=== PATIENT | female | born 1945 | race Hispanic/Latino ===

== ENCOUNTER 2017-03-19 10:55 | Emergency (ER) | payer MEDICARE ==
[2017-03-19 11:05] VITALS: BMI 28.3
[2017-03-19] MEDS ORDERED: Lidocaine/Epi 1% 1:100000 20 ML IJ STA (11:13)
[2017-03-19 11:14] VITALS: BP 134/72; PULSE 105; RESP 19; TEMP 97.6; O2SAT 97
[2017-03-19] MEDS ORDERED: TDAP Vaccine 0.5 mL Syr IM ONE (11:14)
--- NOTE | 2017-03-19 11:21 | ED PDOC ---
Arrival/HPI - General Chief Complaint: Trauma Time Seen by Provider: 03/19/17 11:10 Historian: Patient - History of Present Illness Narrative History of Present Illness (Text): 03/19/17 11:15 Tyra Subramanian is a 72 year old female who presents to the emergency department for evaluation of laceration to left forehead which she sustained following a mechanical fall earlier today. States she was climbing a flight of stairs when she tripped and hit her forehead. Denies loss of consciousness. Last tetanus shot unknown. Denies any fever, chills, chest pain, shortness of breath, weakness/numbness of extremities. nausea, vomiting, diarrhea, urinary symptoms, or any other complaints at this time. Time/Duration: Prior to Arrival Symptom Onset: Sudden Severity Level: Mild Activities at Onset: Significant Context: Tripped Past Medical History - Provider Review Nursing Documentation Reviewed: Yes - Past Medical History Past Medical History: No Previous - Cardiac Hx Cardiac Disorders: No Hx Hypertension: No - Pulmonary Hx Respiratory Disorders: No Hx Tuberculosis: No - Neurological HX Cerebrovascular Accident: No Hx Seizures: No - HEENT Hx HEENT Disorder: No - Renal Hx Renal Disorder: No - Endocrine/Metabolic Hx Endocrine Disorders: No - Hematological/Oncological Hx Blood Disorders: Yes Hx Cancer: No Hx Shingles: Yes - Integumentary Hx Dermatological Disorder: No - Musculoskeletal/Rheumatological Hx Musculoskeletal Disorders: No Hx Falls: No - Gastrointestinal Hx Gastrointestinal Disorders: No - Genitourinary/Gynecological Hx Genitourinary Disorders: No Hx Reproductive Disorders: No Hx Sexually Transmitted Diseases: No - Psychiatric Hx Psychophysiologic Disorder: No Hx Depression: No Hx Emotional Abuse: No Hx Physical Abuse: No Hx Substance Use: No - Surgical History Hx Hysterectomy: Yes Hx Orthopedic Surgery: Yes - Suicidal Assessment Feels Threatened In Home Enviroment: No Family/Social History - Physician Review Nursing Documentation Reviewed: Yes Family/Social History: No Known Family HX Smoking Status: Former Smoker Hx Alcohol Use: Yes Frequency of alcohol use: Socially Hx Substance Use: No Hx Substance Use Treatment: No Allergies/Home Meds Allergies/Adverse Reactions: Allergies iodine Allergy (Verified 03/19/17 11:05) RASH shellfish derived Allergy (Verified 03/19/17 11:05) RASH Home Medications: Home Meds Medication Instructions Recorded Confirmed No Known Home Med 06/25/17 06/25/17 Review of Systems - Physician Review All systems were reviewed & negative as marked: Yes - Review of Systems Constitutional: Normal. absent: Fatigue, Fevers Respiratory: Normal. absent: SOB, Cough Cardiovascular: Normal. absent: Chest Pain, Palpitations Gastrointestinal: Normal. absent: Abdominal Pain, Diarrhea, Nausea, Vomiting Neurological: Other (laceration to left forehead ). absent: Dizziness, Focal Weakness Psychiatric: Normal Physical Exam Vital Signs Reviewed: Yes Vital Signs Temp Pulse Resp BP Pulse Ox 03/19/17 10:55 97.6 F 105 H 19 134/72 97 Temperature: Afebrile Blood Pressure: Normal Pulse: Tachycardic Respiratory Rate: Normal Appearance: Positive for: Well-Appearing, Non-Toxic, Comfortable Pain Distress: None Mental Status: Positive for: Alert and Oriented X 3 - Systems Exam Head: Present: Normocephalic, Laceration (1 cm laceration on left forehead ) Pupils: Present: PERRL Conjunctiva: Present: Normal Mouth: Present: Moist Mucous Membranes Neck: Present: Normal Range of Motion. No: MIDLINE TENDERNESS, Paraspinal Tenderness Respiratory/Chest: Present: Clear to Auscultation, Good Air Exchange. No: Respiratory Distress, Accessory Muscle Use Cardiovascular: Present: Regular Rate and Rhythm, Normal S1, S2. No: Murmurs Abdomen: Present: Normal Bowel Sounds. No: Tenderness, Distention, Peritoneal Signs Upper Extremity: Present: Normal Inspection. No: Cyanosis, Edema Lower Extremity: Present: Normal Inspection. No: Edema Neurological: Present: GCS=15, CN II-XII Intact, Speech Normal, Motor Func Grossly Intact, Normal Sensory Function Skin: Present: Warm, Dry, Normal Color. No: Rashes Psychiatric: Present: Alert, Oriented x 3, Normal Insight, Normal Concentration Medical Decision Making ED Course and Treatment: 03/19/17 11:26 Impression: A 72 year old female who presents to the emergency department for evaluation of laceration to left forehead following a fall prior to arrival Plan: -- CT Head -- Lidocaine -- Boostrix -- Reassess and disposition Progress Notes: 03/19/17 12:22 PROCEDURE: LACERATION REPAIR Performed by the dr marybeth block Location: Left forehead Length: 1 cm Description: clean wound edges,no foreign bodies Distal CMS: Normal. No deficits. Neurovascularly intact. Anesthesia: Lidocaine 1% Preparation: The wound was cleaned with NS and Betadyne. The area was prepped and draped in the usual sterile fashion. Exploration: The wound was explored and no foreign bodies were found. Procedure: The wound was closed with 6-0 nylon. There was good approximation. In total, 3 were used. Post-Procedure: Good closure and hemostasis. The patient tolerated the procedure well and there were no complications. Post procedure dressing applied. 03/19/17 12:50 - RAD Interpretation Radiology Orders: 03/19/17 11:12 HEAD W/O CONTRAST [CT] Stat - Medication Orders Current Medication Orders: Discontinued Medications Lidocaine/Epinephrine (Lidocaine 1%/Epinephrine 1:[id number] 30 Ml) 5 ml IJ ONCE ONE Stop: 03/19/17 11:31 Last Admin: 03/19/17 11:45 Dose: 5 ml Tetanus/Reduced Diphtheria/Acell Pertussis (Boostrix Vaccine Inj) 0.5 ml IM .ONCE ONE Stop: 03/19/17 11:15 Last Admin: 03/19/17 11:45 Dose: 0.5 ml - Scribe Statement The provider has reviewed the documentation as recorded by the Laureano Mcghee Provider Attestation: Provider Scribe Attestation: All medical record entries made by the Scribe were at my direction and personally dictated by me. I have reviewed the chart and agree that the record accurately reflects my personal performance of the history, physical exam, medical decision making, and the department course for this patient. I have also personally directed, reviewed, and agree with the discharge instructions and disposition. Disposition/Present on Arrival - Present on Arrival Any Indicators Present on Arrival: No History of DVT/PE: No History of Uncontrolled Diabetes: No Urinary Catheter: No History of Decub. Ulcer: No History Surgical Site Infection Following: None - Disposition Have Diagnosis and Disposition been Completed?: Yes Diagnosis: Head injury Disposition: HOME/ ROUTINE Disposition Time: 11:53 Condition: STABLE Discharge Instructions (ExitCare): Care For Your Stitches (ED), Laceration (ED) , Head Injury (ED) Additional Instructions: return to er or your pmd in 7 days for removal. return immediately with any worsening symptoms or concerns Referrals: Regino Ramesh MD [Primary Care Provider] - Follow up with primary
[2017-03-19] MEDS ORDERED: Lidocaine 1%/Epinephrine 1:100000 30 ml vial IJ ONE (11:30)
--- NOTE | 2017-03-19 11:50 | CT ---
PROCEDURE: CT HEAD WITHOUT CONTRAST. HISTORY: fall COMPARISON: None available. TECHNIQUE: Axial computed tomography images were obtained through the head/brain without intravenous contrast. Radiation dose: Total exam DLP = 677 mGy-cm. This CT exam was performed using one or more of the following dose reduction techniques: Automated exposure control, adjustment of the mA and/or kV according to patient size, and/or use of iterative reconstruction technique. FINDINGS: HEMORRHAGE: No intracranial hemorrhage. BRAIN: No mass effect or edema. Mild chronic microvascular changes. Mild atrophy VENTRICLES: Unremarkable. No hydrocephalus. CALVARIUM: Unremarkable. PARANASAL SINUSES: Unremarkable as visualized. No significant inflammatory changes. MASTOID AIR CELLS: Unremarkable as visualized. No inflammatory changes. OTHER FINDINGS: None. IMPRESSION: No acute finding
== END 2017-03-19 12:26 | disposition home or self-care (01) ==
LOC: ED 10:55
DX: S01.81XA Laceration without foreign body of other part of head, initial encounter (principal); W01.198A Fall on same level from slipping, tripping and stumbling with subsequent striking against other object, initial encounter; Z23 Encounter for immunization

== ENCOUNTER 2017-03-26 11:34 | Emergency (ER) | payer MEDICARE ==
[2017-03-26 11:35] VITALS: BMI 28.3
[2017-03-26 11:54] VITALS: BP 175/81; PULSE 80; RESP 18; TEMP 99.4; O2SAT 98
--- NOTE | 2017-03-26 12:13 | ED PDOC ---
Arrival/HPI - General Chief Complaint: Suture/Staple Removal Time Seen by Provider: 03/26/17 12:04 Historian: Patient, Family - History of Present Illness Time/Duration: 1 week Associated Symptoms (Text): 03/26/17 12:12 Here for suture removal from left forehead sutured one week ago. No problems. Past Medical History - Reproductive Menopause: Yes - Past Medical History Past Medical History: No Previous - Cardiac Hx Cardiac Disorders: No Hx Hypertension: No - Pulmonary Hx Respiratory Disorders: No Hx Tuberculosis: No - Neurological HX Cerebrovascular Accident: No Hx Seizures: No - HEENT Hx HEENT Disorder: No - Renal Hx Renal Disorder: No - Endocrine/Metabolic Hx Endocrine Disorders: No - Hematological/Oncological Hx Blood Disorders: Yes Hx Cancer: No Hx Shingles: Yes - Integumentary Hx Dermatological Disorder: No - Musculoskeletal/Rheumatological Hx Musculoskeletal Disorders: No Hx Falls: No - Gastrointestinal Hx Gastrointestinal Disorders: No - Genitourinary/Gynecological Hx Genitourinary Disorders: No Hx Reproductive Disorders: No Hx Sexually Transmitted Diseases: No - Psychiatric Hx Psychophysiologic Disorder: No Hx Depression: No Hx Emotional Abuse: No Hx Physical Abuse: No Hx Substance Use: No - Surgical History Hx Hysterectomy: Yes Hx Orthopedic Surgery: Yes - Suicidal Assessment Feels Threatened In Home Enviroment: No Family/Social History - Physician Review Nursing Documentation Reviewed: Yes Family/Social History: Unknown Family HX Smoking Status: Former Smoker Hx Alcohol Use: Yes Frequency of alcohol use: Daily Hx Substance Use: No Hx Substance Use Treatment: No Allergies/Home Meds Allergies/Adverse Reactions: Allergies iodine Allergy (Verified 03/26/17 11:54) RASH shellfish derived Allergy (Verified 03/26/17 11:54) RASH Home Medications: Home Meds Medication Instructions Recorded Confirmed No Known Home Med 03/19/17 03/26/17 Physical Exam Vital Signs Temp Pulse Resp BP Pulse Ox 03/26/17 11:50 99.4 F 80 18 175/81 H 98 Temperature: Afebrile Blood Pressure: Hypertensive Pulse: Regular Respiratory Rate: Normal Appearance: Positive for: Well-Appearing, Non-Toxic, Comfortable Pain Distress: None Mental Status: Positive for: Alert and Oriented X 3 - Systems Exam Skin: Present: Warm, Dry, Normal Color, Other (Left forehead wound clean and dry with no signs of infection). No: Rashes Medical Decision Making ED Course and Treatment: 03/26/17 12:12 Sutures removed and sterile dressing applied Disposition/Present on Arrival - Present on Arrival Any Indicators Present on Arrival: No History of DVT/PE: No History of Uncontrolled Diabetes: No Urinary Catheter: No History of Decub. Ulcer: No History Surgical Site Infection Following: None - Disposition Have Diagnosis and Disposition been Completed?: Yes Diagnosis: Visit for suture removal Disposition: HOME/ ROUTINE Disposition Time: 12:13 Patient Plan: Discharge Condition: GOOD Discharge Instructions (ExitCare): Stitches Removal (ED)
== END 2017-03-26 12:23 | disposition home or self-care (01) ==
LOC: ED 11:34
DX: Z48.02 Encounter for removal of sutures (principal)

== ENCOUNTER 2018-09-19 12:02 | Emergency (ER) | payer MEDICARE ==
[2018-09-19 12:02] VITALS: BMI 28.3
--- NOTE | 2018-09-19 12:31 | ED PDOC ---
Arrival/HPI - General Chief Complaint: Trauma Time Seen by Provider: 09/19/18 12:06 Historian: Patient - History of Present Illness Narrative History of Present Illness (Text): 09/19/18 12:29 73 year old female, whose past medical history includes psychiatric disorder, presents to the emergency department complaining of leg weakness and right shoulder pain s/p falling last night. Patient notes she walks with a cane at baseline. She reports she was walking to the bathroom last night when her "leg gave out" fell to the ground and struck her head and shoulder against bed. She was found by her neighbor early this morning, who called EMS. Patient denies fevers, chills, headache, dizziness, chest pain, shortness of breath, dyspnea on exertion, cough, abdominal pain, nausea, vomiting, back pain, neck pain, or any other complaint. PMD: Dr. Ramesh Time/Duration: 24 hours Symptom Course: Unchanged Activities at Onset: Light Context: Home Past Medical History - Provider Review Nursing Documentation Reviewed: Yes - Infectious Disease Hx of Infectious Diseases: None - Reproductive Menopause: Yes - Past Medical History Past Medical History: No Previous - Cardiac Hx Cardiac Disorders: No Hx Hypertension: No - Pulmonary Hx Respiratory Disorders: No Hx Tuberculosis: No - Neurological HX Cerebrovascular Accident: No Hx Seizures: No - HEENT Hx HEENT Disorder: No - Renal Hx Renal Disorder: No - Endocrine/Metabolic Hx Endocrine Disorders: No - Hematological/Oncological Hx Blood Disorders: Yes Hx Cancer: No Hx Shingles: Yes - Integumentary Hx Dermatological Disorder: No - Musculoskeletal/Rheumatological Hx Musculoskeletal Disorders: No Hx Falls: No - Gastrointestinal Hx Gastrointestinal Disorders: No - Genitourinary/Gynecological Hx Genitourinary Disorders: No Hx Reproductive Disorders: No Hx Sexually Transmitted Diseases: No - Psychiatric Hx Psychophysiologic Disorder: No Hx Depression: No Hx Emotional Abuse: No Hx Physical Abuse: No Hx Substance Use: No - Surgical History Hx Hysterectomy: Yes Hx Orthopedic Surgery: Yes - Anesthesia Hx Anesthesia: No - Suicidal Assessment Feels Threatened In Home Enviroment: No Family/Social History - Physician Review Nursing Documentation Reviewed: Yes Family/Social History: No Known Family HX Smoking Status: Former Smoker Hx Alcohol Use: Yes Frequency of alcohol use: Socially Hx Substance Use: No Hx Substance Use Treatment: No Allergies/Home Meds Allergies/Adverse Reactions: Allergies iodine Allergy (Verified 03/26/17 11:54) RASH shellfish derived Allergy (Verified 03/26/17 11:54) RASH Sulfa (Sulfonamide Antibiotics) Allergy (Verified 09/19/18 12:23) RASH Home Medications: Home Meds Medication Instructions Recorded Confirmed RX: No Known Home Med 03/19/17 03/26/17 Review of Systems - Physician Review All systems were reviewed & negative as marked: Yes - Review of Systems Constitutional: absent: Fevers Respiratory: absent: SOB, Cough Cardiovascular: absent: Chest Pain Gastrointestinal: Diarrhea. absent: Abdominal Pain, Nausea, Vomiting Musculoskeletal: Other (right shoulder pain, leg weakness). absent: Back Pain, Neck Pain Neurological: absent: Headache, Dizziness Physical Exam Vital Signs Reviewed: Yes Temperature: Afebrile Blood Pressure: Normal Pulse: Tachycardic Respiratory Rate: Normal Appearance: Positive for: Well-Appearing, Non-Toxic, Comfortable Pain Distress: None Mental Status: Positive for: Alert and Oriented X 3 - Systems Exam Head: Present: Atraumatic, Normocephalic, Contusion (to right forehead) Pupils: Present: PERRL Extroacular Muscles: Present: EOMI Conjunctiva: Present: Normal Mouth: Present: Moist Mucous Membranes Neck: Present: Normal Range of Motion Respiratory/Chest: Present: Clear to Auscultation, Good Air Exchange. No: Respiratory Distress, Accessory Muscle Use Cardiovascular: Present: Regular Rate and Rhythm, Normal S1, S2. No: Murmurs Abdomen: No: Tenderness, Distention, Peritoneal Signs Back: Present: Normal Inspection Upper Extremity: Present: Deformity (right upper arm ), Other (ecchymosis to right upper arm) Lower Extremity: Present: Erythema (to the right knee ), Other (old bruising to legs bilaterally) Neurological: Present: GCS=15, CN II-XII Intact, Speech Normal Skin: Present: Warm, Dry, Normal Color. No: Rashes Psychiatric: Present: Alert, Oriented x 3, Normal Insight, Normal Concentration Medical Decision Making ED Course and Treatment: 09/19/18 12:29 Impression: 73 year old female who presents to the emergency department complaining of right shoulder pain and leg weakness s/p fall. Plan: -- Head CT w/o contrast -- EKG -- Labs -- Chest X-ray -- Tylenol -- Right elbow X-ray -- Right humerus X-ray -- Pelvis X-ray -- Right shoulder X-ray -- Urinalysis -- Reassess and disposition Prior Visits: Notes and results from previous visits were reviewed. Progress Notes: 09/19/18 13:43 EKG reviewed, shows: Sinus tachycardia at 108 BPM with non-specific ST/T wave changes. LVH with lead variation. No interval changes from 2014. 09/19/18 13:[address] reviewed, shows: IMPRESSION: Stable age-related degenerative changes are identified without definite acute intracranial changes by standard CT criteria. Follow-up CT or MRI are available if clinically warranted. Left maxillary sinus polyp or cyst identified. 09/19/18 15:19 Right shoulder X-ray reviewed by radiologist, shows: IMPRESSION: Comminuted fracture of the proximal metaphysis right humerus into numerous fragments without definitive dislocation identified. Moderate lateral shoulder/proximal arm soft tissue edema related. Humerus X-ray reviewed by radiologist, shows: IMPRESSION: Comminuted fracture proximal right humerus with the middle and distal segments appearing grossly intact. Right elbow X-ray reviewed by radiologist, shows: IMPRESSION: Limited examination due to include of the patient to adequately position as discussed above. No displaced fracture or dislocation appreciable. CT is available for follow-up if clinically warranted. Chest X-ray reviewed by radiologist, shows: IMPRESSION: No interval acute cardiopulmonary disease appreciable. Chronic linear fibrosis left base laterally. Reiterated calcified granuloma right upper lobe. 09/19/18 15:21 Pelvis X-ray reviewed by radiologist, shows: IMPRESSION: No fracture of the pelvic ring. Diffuse osteopenia suggests osteoporosis. Bilateral hip degenerative joint changes are identified as well as sacroiliac joints with the right hip joint were most advanced. Right femoral neck is limited evaluation due to rotation of the pelvis to the right. Dedicated right hip radiograph series is advised, particularly if there is clinical suspicion of right hip fracture. 09/19/18 17:03 dr joshi bedside. states pt will need transfer to [facility] for equipment not available at [place]. case discussed with yesenia barfield at [facility], states dr harris is ed accepting. splinted by dr jenkins. pt requests [facility]. - Lab Interpretations I have reviewed the lab results: Yes - RAD Interpretation Radiology Orders: 09/19/18 12:28 CHEST PORTABLE [RAD] Stat - EKG Interpretation Interpreted by ED Physician: Yes Type: 12 lead EKG - Scribe Statement The provider has reviewed the documentation as recorded by the Laureano Feliciano Provider Scribe Attestation: All medical record entries made by the Laureano were at my direction and personally dictated by me. I have reviewed the chart and agree that the record accurately reflects my personal performance of the history, physical exam, medical decision making, and the department course for this patient. I have also personally directed, reviewed, and agree with the discharge instructions and disposition. Disposition/Present on Arrival - Present on Arrival Any Indicators Present on Arrival: No History of DVT/PE: No History of Uncontrolled Diabetes: No Urinary Catheter: No History of Decub. Ulcer: No History Surgical Site Infection Following: None - Disposition Have Diagnosis and Disposition been Completed?: Yes Diagnosis: Humerus fracture, Fall Disposition: Transfer [facility] Disposition Time: 15:30 Condition: STABLE
[2018-09-19 13:23] LABS: ALB/GLOB RATIO 1.2 (1.1-1.8); ALBUMIN 3.9 g/dL (3.0-4.8); ALT/SGPT 36 U/L (7-56); AST/SGOT 58 U/L (14-36); BLOOD UREA NITROGEN 15 mg/dL (7-21); CALCIUM 8.9 mg/dL (8.4-10.5); GFR NON-AFRICAN AMERICAN > 60
[2018-09-19 13:30] LABS: BASO # 0.01 K/mm3 (0.0-2.0); BASO % 0.1 % (0.0-3.0); GRAN # 8.14 (1.4-6.5); GRAN % 76.7 % (50.0-68.0); HEMOGLOBIN 11.5 g/dL (12.0-16.0); LYMPH # 0.8 (1.2-3.4); LYMPH % 7.2 % (22.0-35.0); MEAN CELL VOLUME 100.9 fl (80.0-105.0); MEAN CORPUSCULAR HEMOGLOBIN 33.4 pg (25.0-35.0); MEAN CORPUSCULAR HGB CONC 33.1 g/dl (31.0-37.0); MEAN PLATELET VOLUME 10.3 fl (7.0-11.0); MONO # 1.7 (0.1-0.6); RBC 3.44 10^6/uL (3.5-6.1); RED CELL DISTRIBUTION WIDTH 13.7 % (11.5-14.5); WHITE BLOOD COUNT 10.6 10^3/uL (4.5-11.0)
[2018-09-19 13:33] LABS: INR 0.99; PARTIAL THROMBOPLASTIN TIME 22.9 Seconds (25.1-36.5); PROTHROMBIN TIME 11.4 SECONDS (9.4-12.5)
[2018-09-19 13:34] LABS: TROPONIN I < 0.01 ng/mL
--- NOTE | 2018-09-19 13:36 | CT ---
Date of service: 09/19/2018 PROCEDURE: CT HEAD WITHOUT CONTRAST. HISTORY: fall COMPARISON: Noncontrast head CT 03/19/2017. TECHNIQUE: Axial computed tomography images were obtained through the head/brain without intravenous contrast. Radiation dose: Total exam DLP = 883.71 mGy-cm. This CT exam was performed using one or more of the following dose reduction techniques: Automated exposure control, adjustment of the mA and/or kV according to patient size, and/or use of iterative reconstruction technique. FINDINGS: HEMORRHAGE: No intracranial hemorrhage. BRAIN: Good corticomedullary differentiation is seen. Reiterated diffuse cerebral atrophy and chronic microangiopathy. No suspicious extra-axial fluid collection is identified and the midline brain anatomy appears grossly nonfocal as imaged. No mass effect identified. VENTRICLES: Unremarkable. No hydrocephalus. CALVARIUM: Unremarkable. PARANASAL SINUSES: Left maxillary sinus polyp or cyst identified. MASTOID AIR CELLS: Unremarkable as visualized. No inflammatory changes. OTHER FINDINGS: None. IMPRESSION: Stable age-related degenerative changes are identified without definite acute intracranial changes by standard CT criteria. Follow-up CT or MRI are available if clinically warranted. Left maxillary sinus polyp or cyst identified.
[2018-09-19 13:40] LABS: CK-MB 4.7 ng/mL (0.0-3.6)
[2018-09-19 13:47] VITALS: TEMP 98.2
--- NOTE | 2018-09-19 14:55 | RAD ---
Date of service: 09/19/2018 PROCEDURE: Radiographs of the right elbow. HISTORY: fall COMPARISON: No prior. FINDINGS: BONES: Patient is unable to adequately position for the examination due to pain. Two lateral oblique images are submitted and fail demonstrate definite displaced fracture or dislocation. No definitive subluxation. Local soft tissues are nonfocal as imaged. CT can be utilized for added characterization if clinically warranted. JOINTS: As above. SOFT TISSUES: Normal. JOINT EFFUSION: None. OTHER FINDINGS: None. IMPRESSION: Limited examination due to include of the patient to adequately position as discussed above. No displaced fracture or dislocation appreciable. CT is available for follow-up if clinically warranted.
--- NOTE | 2018-09-19 14:58 | RAD ---
PROCEDURE: Radiographs of the right humerus. HISTORY: fall COMPARISON: None. FINDINGS: BONES: There is a comminuted fracture of the proximal right humeral metaphysis. Numerous fragments are identified including some rather distant from the main fracture site scattered lateral to the near mid diaphysis right humerus. The mid and distal right humerus are otherwise unremarkable. SOFT TISSUES: Normal. OTHER FINDINGS: None. IMPRESSION: Comminuted fracture proximal right humerus with the middle and distal segments appearing grossly intact.
--- NOTE | 2018-09-19 15:03 | RAD ---
Date of service: 09/19/2018 PROCEDURE: Radiographs of the Right Shoulder HISTORY: fall COMPARISON: Portable chest 11/20/2013. No prior right shoulder radiographs available for comparison. FINDINGS: BONES: A comminuted fracture of the proximal right humeral metaphysis appreciated and potentially the inferior right humeral head as well. The right humeral head appears rotated with distal fracture pain lateral to the glenohumeral joint. There are at least 7-8 scattered fracture fragments abutting the main, proximal right humeral fracture fragment with a least 1 other fragment seen abutting/overlapping the right humeral head. There is no apparent dislocation appreciated. JOINTS: Mild degenerative changes seen the glenohumeral and acromioclavicular joints. No AC joint separation appreciable. SOFT TISSUES: Moderate edema is seen family lateral at the proximal right upper extremity/shoulder. OTHER FINDINGS: None. IMPRESSION: Comminuted fracture of the proximal metaphysis right humerus into numerous fragments without definitive dislocation identified. Moderate lateral shoulder/proximal arm soft tissue edema related.
--- NOTE | 2018-09-19 15:05 | RAD ---
Date of service: 09/19/2018 HISTORY: fall COMPARISON: Portable chest radiograph 11/20/2013. FINDINGS: LUNGS: Calcified granuloma again seen right upper lobe. No interval airspace disease appreciable bilaterally. Limited chronic linear fibrosis reiterated at the left base. PLEURA: No significant pleural effusion identified, no pneumothorax apparent. CARDIOVASCULAR: Calcific atherosclerotic changes are seen related to the thoracic aorta. Normal cardiac size. No pulmonary vascular congestion. OSSEOUS STRUCTURES: No significant abnormalities. VISUALIZED UPPER ABDOMEN: Normal. OTHER FINDINGS: None. IMPRESSION: No interval acute cardiopulmonary disease appreciable. Chronic linear fibrosis left base laterally. Reiterated calcified granuloma right upper lobe.
--- NOTE | 2018-09-19 15:15 | RAD ---
Date of service: 09/19/2018 PROCEDURE: Radiographs of the pelvis. HISTORY: fall COMPARISON: None. FINDINGS: Severe right and moderate to severe left hip degenerative joint changes are identified including joint space narrowing and articular cortical sclerosis at the weight-bearing segments. Angle of capture is with patient is somewhat rotated to the right and is difficult to evaluate the right femoral neck as result. Dedicated right hip radiographs recommended to further evaluate the proximal right femur particularly if there is clinical suspicion of right hip fracture. No left hip fracture. Diffuse osteopenia suggests osteoporosis. The iliac bones appear intact. The sacrum is obscured by overlying bowel. Pubic symphysis is intact with no pubic bone fracture appreciated. OTHER FINDINGS: None. IMPRESSION: No fracture of the pelvic ring. Diffuse osteopenia suggests osteoporosis. Bilateral hip degenerative joint changes are identified as well as sacroiliac joints with the right hip joint were most advanced. Right femoral neck is limited evaluation due to rotation of the pelvis to the right. Dedicated right hip radiograph series is advised, particularly if there is clinical suspicion of right hip fracture.
[2018-09-19 15:31] VITALS: BP 116/80; PULSE 98; RESP 18; O2SAT 97
--- NOTE | 2018-09-20 00:24 | CARD ---
APPROVED REPORT Date of service: 09/19/2018 EKG Measurement Heart [id number] <Conclusion> Sinus tachycardia Left ventricular hypertrophy with repolarization abnormality Abnormal ECG
--- NOTE | 2018-09-20 11:03 | CON ---
DATE: 09/19/2018 HISTORY OF PRESENT ILLNESS: The patient was in emergency room. The patient requested me for falling at home 16 hours ago, had a tremendous swelling, ecchymosis and pain over right proximal humerus x-ray showed 100% displaced proximal right humerus fracture involving the surgical neck, good neurovascular status. I explained to her and the sister that this can be a complex case of a orthopaedic that has good knowledge to be a very good surgical supply assistant to help perform the surgery to make a goal as smooth as possible. Otherwise, she could have high-risk infection, malunion or redo surgery. So I am going appointment to [facility], will hear for orthopedic staff, knowledgeable aspects of this severe injury, and we have to wait medical clearance that to be done also at [facility] because she has increased muscle enzymes. She has past history of alcoholism and lives alone and is somewhat noncompliant. So bringing to medical center, we have also orthopedic staff to help this injury before surgery and after surgery. FINAL DIAGNOSIS: A 100% displaced proximal wrist fracture with comminution and soft tissue injury and there is always a chance of vascular injury with this and we have more access to vascular surgery at the [facility] on 09/19/2018 and hopefully perform the surgery on 09/21/2018. Seferino Vidal DO [facility]
== END 2018-09-19 15:48 | disposition short-term general hospital (02) ==
LOC: ED 12:02 → ERH 13:39 → UNDOADMIN 13:39 → ED 15:48
DX: S42.201A Unspecified fracture of upper end of right humerus, initial encounter for closed fracture (principal); W19.XXXA Unspecified fall, initial encounter; Y92.009 Unspecified place in unspecified non-institutional (private) residence as the place of occurrence of the external cause